=== PATIENT | male | born 1970 | race African-American/Black ===

== ENCOUNTER 2021-04-01 19:17 | Emergency (ER) | payer OTHER, SELFPAY ==
--- NOTE | ~2021-04-01 | XR_ITS ---
EXAMINATION: XR knee LT min 4V EXAM DATE: 04/01/2021 19:39 INDICATION: NKI, anterior knee pain and redness. TECHNIQUE: Left knee frontal, crosstable lateral, orthogonal oblique projections for interpretation. [place] projection left knee. There are no prior studies for comparison. FINDINGS: No evidence osteochondral defect or joint body in the left knee joint. There are no acute fractures or dislocations identified. There is no subcutaneous gas. There is soft tissue swelling a nterior to the patellar tendon. There are no radiopaque foreign bodies. No sizable joint effusion. Mild suprapatellar enthesopathy. IMPRESSION: Anterior swelling. Prepatellar bursitis? Reviewed, dictated and finalized at location . [facility] [employer]
[2021-04-01 19:24] VITALS: BP 141/98; PULSE 90; RESP 20; TEMP 37.4; O2SAT 98
--- NOTE | 2021-04-01 19:58 | ED.GENADULT ---
HPI - General Adult General Chief complaint: Extremity Injury, Lower Stated complaint: left knee pain Source: patient Mode of arrival: ambulatory Limitations: no limitations History of Present Illness HPI narrative: Patient presents for evaluation of left knee pain for the last 7 days. He indicates he notices symptoms after he was on and off his knees at work. He works as a senior product designer. He states pain has been fairly constant since that time. Pain is rated 8/10 in severity and described as a pinching sensation. Certain movements make the pain worse. He has been using NSAIDs with some improvement in his symptoms. He does drink 6-12 beers per day. He has had one beer today. No personal hx of gout. Date of last tetanus unknown. No additional complaints or concerns. Related Data Allergies Allergy/AdvReac Type Severity Reaction Status Date / Time No Known Allergies Allergy Verified 04/01/21 19:28 Review of Systems Review of Systems: CONSTITUTIONAL: Denies fever, chills, or sweats. EYES: Denies visual changes, redness, or discharge. ENT: Denies rhinorrhea, congestion, sore throat, or otalgia. CARDIOVASCULAR: Denies chest pain, palpitations, or edema. RESPIRATORY: Denies cough or dyspnea. GASTROINTESTINAL: Denies abdominal pain, nausea, vomiting, or diarrhea. GENITOURINARY: Denies dysuria or hematuria. SKIN: Reporst redness to left knee. Denies rash or itching. MUSCULOSKELETAL: Reports left knee pain. Denies back pain NEUROLOGIC: Denies headache, numbness, dizziness, or weakness. PSYCHIATRIC: Denies anxiety or depression. [facility] Past Medical History Medical History No pertinent past medical history Surgical History Surgical History No pertinent past surgical history Family History Family History Mother Family history non-contributory Social History Social History (Updated 04/01/21 @ 20:07 by SCOTT Johnson, ) Alcohol intake: current Alcohol use details: 6-12 beers per day Substance use: never Living arrangements: with family Gender identity (if verbalized by the patient): Male Sexual Orientation (if Verbalized by the Patient): Straight or Heterosexual Spiritual care concerns: No Exam Narrative: GENERAL: Well-appearing, well-nourished, and in no acute distress. HEAD: Normocephalic, atraumatic. EYES: PERRLA and EOMI. ENT: Nares clear, no rhinorrhea or epistaxis. Mucous membranes moist. Oropharynx without tonsillar hypertrophy exudate or other lesions. Bilateral TMs pearly wilkins nonbulging NECK: Supple. No adenopathy or masses. No carotid bruits or JVD CHEST: Clear to auscultation. No respiratory distress. No wheezes rales or rhonchi HEART: Regular rate and rhythm. No murmur heard. Normal peripheral pulses. ABDOMEN: Soft, nontender, nondistended, normal active bowel sounds. EXTREMITIES: Trace pitting edema noted to anterior aspect of left knee. Anterior aspect of left knee is tender to palpation. Decreased active extension of left knee but able to tolerate full passive extension of left knee SKIN: There is an 13 x 8 area of erythema with associated warmth overlying the anterior aspect of left knee. NEURO: No focal deficits. Alert and oriented x3. PSYCH: Normal mood and affect. Course Course Emergency Course: This is a 50-year-old male that presented with 1 week history of left knee pain. Initial differential included bursitis versus gout versus less likely septic arthritis. On my initial evaluation I recommended that patient go to the ER for further evaluation, to which he was agreeable. I contacted [facility] and spoke with charge nurse, Shayy, who indicated that Dr. Rios would accept pt for transfer. Then received report from x-ray of left knee. I reviewed this with patient. Cl
[2021-04-01] MEDS: cefTRIAXone 500 MG VIAL IM (20:09)
[2021-04-01] MEDS: methylPREDNISolone SOD SUCC 125 MG VIAL IM (20:12)
[2021-04-01] MEDS: TETANUS,DIPHTHERIA,AC PERTUSSIS ADULT (0.5 ML) BOOSTRIX IM (20:13)
== END 2021-04-01 20:32 | disposition home or self-care (01) ==
PROVIDERS: Emergency Provider Nurse Practitioner
DX: M70.42 Prepatellar bursitis, left knee (principal); Z23 Encounter for immunization
CPT/HCPCS: 73564; 90471; 90715; 96372; 99214; G0463; J0696; J2930